=== PATIENT | female | born 1960 | race Caucasian/White ===

== ENCOUNTER → 2017-04-08 16:19 | Outpatient (CLI) | payer BC ==
[2015-04-19 08:18] VITALS: BMI 37.1
[~2017-04-08 16:19] MED LIST: PRISTIQ50 MG PO; SYNTHROID50 MCG PO
== END | disposition home or self-care (01) ==
LOC: D.MAMMO 09:15
DX: Z12.31 Encounter for screening mammogram for malignant neoplasm of breast (principal)

== ENCOUNTER → 2018-04-13 18:25 | Outpatient (CLI) | payer BC ==
[2015-04-19 08:18] VITALS: BMI 37.1
== END | disposition home or self-care (01) ==
LOC: D.MAMMO 09:15
DX: Z12.31 Encounter for screening mammogram for malignant neoplasm of breast (principal)

== ENCOUNTER → 2018-05-05 20:24 | Outpatient (CLI) | payer BC ==
[2015-04-19 08:18] VITALS: BMI 37.1
== END | disposition home or self-care (01) ==
LOC: D.MAMMO 14:30
DX: R92.8 Other abnormal and inconclusive findings on diagnostic imaging of breast (principal)

== ENCOUNTER 2020-10-03 18:34 | Outpatient (CLI) | payer BC ==
[2015-04-19 08:18] VITALS: BMI 37.1
== END 2020-10-03 23:59 | disposition home or self-care (01) ==
LOC: D.MAMMO 18:34
PROVIDERS: ATTEND Family Medicine
DX: Z12.31 Encounter for screening mammogram for malignant neoplasm of breast (principal)